=== PATIENT | female | born 1965 ===

== ENCOUNTER 2017-01-15 12:03 | Emergency (ER) | payer BC, OTHER ==
[2017-01-15 12:03] VITALS: BMI 26.4
[2017-01-15 12:17] VITALS: RESP 18; TEMP 98.2
[2017-01-15] MEDS ORDERED: Sodium Chloride 0.9% 1,000 ML IV ONE (13:00)
--- NOTE | 2017-01-15 13:10 | C.PDOC ---
Time Seen by Provider: 01/15/17 12:24 Chief Complaint (Nursing): Female Genitourinary Past Medical History Vital Signs: Last Vital Signs Temp 98.2 F 01/15/17 12:14 Pulse 78 01/15/17 12:14 Resp 18 01/15/17 12:14 BP 116/77 01/15/17 12:14 Pulse Ox 100 01/15/17 12:14 - Medical History PMH: Hypothyroidism Denies: Chronic Kidney Disease Surgical History: Cholecystectomy - Social History Hx Alcohol Use: No Hx Substance Use: No ED Course And Treatment O2 Sat by Pulse Oximetry: 100 Disposition - Disposition
--- NOTE | 2017-01-15 13:11 | C.PDOC ---
History Of Present Illness 51 y/o female presents to ED with complaints of flank pain with associated hematuria for 2 days. Patient denies fever, chills, nausea, vomiting, dysuria, urinary frequency or any other complaints at this time. Time Seen by Provider: 01/15/17 12:24 Chief Complaint (Nursing): Female Genitourinary History Per: Patient History/Exam Limitations: no limitations Onset/Duration Of Symptoms: Days Current Symptoms Are (Timing): Still Present Past Medical History Reviewed: Historical Data, Nursing Documentation, Vital Signs Vital Signs: Last Vital Signs Temp 98.2 F 01/15/17 16:05 Pulse 72 01/15/17 16:05 Resp 18 01/15/17 16:05 BP 113/74 01/15/17 16:05 Pulse Ox 99 01/15/17 16:05 - Medical History PMH: Hypothyroidism Surgical History: Cholecystectomy Family History: States: No Known Family Hx - Social History Hx Alcohol Use: No Hx Substance Use: No Review Of Systems Constitutional: Negative for: Fever, Chills Gastrointestinal: Positive for: Abdominal Pain. Negative for: Nausea, Vomiting Genitourinary: Positive for: Hematuria. Negative for: Dysuria Musculoskeletal: Negative for: Back Pain Skin: Negative for: Rash Neurological: Negative for: Weakness, Numbness Physical Exam - Physical Exam Appears: Non-toxic, No Acute Distress Skin: Normal Color, Warm, Dry, No Rash Head: Atraumatic, Normacephalic Oral Mucosa: Moist Neck: Normal ROM, Supple Cardiovascular: Rhythm Regular Respiratory: Normal Breath Sounds, No Rales, No Rhonchi, No Wheezing Gastrointestinal/Abdominal: Soft, Tenderness (Mild spurapubic ), No Guarding, No Rebound Neurological/Psych: Oriented x3 ED Course And Treatment - Laboratory Results Result Diagrams: 01/15/17 14:10 01/15/17 14:10 Lab Interpretation: No Acute Changes O2 Sat by Pulse Oximetry: 100 (RA) Pulse Ox Interpretation: Normal - CT Scan/US No standard instances Other Rad Studies (CT/US): Read By Radiologist, Radiology Report Reviewed CT/US Interpretation: FINDINGS: LOWER THORAX: Limited fibrotic changes in the bilateral lung bases. LIVER: Unremarkable. No gross lesion or ductal dilatation. GALLBLADDER AND BILE DUCTS: Prior cholecystectomy again suggested. PANCREAS: Unremarkable. No gross lesion or ductal dilatation. SPLEEN: Unremarkable. ADRENALS: Unremarkable. No mass. KIDNEYS AND URETERS: No obstructive uropathy is identified bilaterally, perinephric reaction, urolithiasis or suspicious parenchymal density overall. VASCULATURE: Unremarkable. No aortic aneurysm. BOWEL: The stomach is mildly distended with retained food. There is a nonobstructive bowel gas pattern appreciated throughout the small and large bowel appear relatively prominent retained fecal material seen throughout the majority colon and constipation is in question. APPENDIX: Not clearly identified. Clinically correlate further. No obvious CT pattern appendicitis appreciable. PERITONEUM: Unremarkable. No free fluid. No free air. LYMPH NODES: Unremarkable. No enlarged lymph nodes. BLADDER: Mural thickening the bladder is in question and cystitis is not excluded. The bladder is not fully distended however. Clinically correlate further. REPRODUCTIVE: Unremarkable. BONES: No acute fracture. OTHER FINDINGS: None. IMPRESSION: 1. No obstructive uropathy, radiodense urolithiasis or perinephric perinephric reaction bilaterally. However, limited distention of the urinary bladder limits the evaluation of the wall which appears mildly thickened. No pericystic reaction. Clinically correlate for potential cystitis nevertheless. 2. Prior cholecystectomy again evident. 3. Moderate constipation again suggested. Lack oral and intravenous contrast agents limits interpretation. Further clinical correlation is advised. 4. Bibasilar fibrotic changes again evident. Progress Note: Treated with IVF NSS and rocephin 1 GM IV. On re-evaluation abdomen soft in no distress Reassessment Condition: Unchanged Medical Decision Making Medical Decision Making: Plan: CT scan w/o Contrast abdomen Disposition Counseled Patient/Family Regarding: Studies Performed, Diagnosis, Need For Followup, Rx Given - Disposition Referrals: Kapil Dos Santos Jr., MD [Staff Provider] - Disposition: HOME/ ROUTINE Disposition Time: 16:00 Condition: STABLE Additional Instructions: follow up with PMD and urology for further evaluation Prescriptions: Cephalexin [Keflex] 500 mg PO Q6 #28 capsule Instructions: Urinary Tract Infection in Women (ED) Forms: [facility] (Maori) Print Language: HONDURAN - POA Present On Arrival: None - Clinical Impression Clinical Impression: Urinary tract infection - 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 - Scribe Statement The provider has reviewed the documentation as recorded by the Jesseiblance Coronado All medical record entries made by the Myron were at my direction and personally dictated by me. I have reviewed the chart and agree that the record accurately reflects my personal performance of the history, physical exam, medical decision making, and the department course for this patient. I have also personally directed, reviewed, and agree with the discharge instructions and disposition.
--- NOTE | 2017-01-15 14:01 | CT ---
PROCEDURE: CT Abdomen and Pelvis without intravenous contrast HISTORY: Pain COMPARISON: None. TECHNIQUE: Helical CT of the abdomen and pelvis was performed without oral or intravenous contrast as per referring physician request. Contrast Dose: None Radiation dose: Total exam DLP = 392.09 mGy-cm. This CT exam was performed using one or more of the following dose reduction techniques: Automated exposure control, adjustment of the mA and/or kV according to patient size, and/or use of iterative reconstruction technique. FINDINGS: LOWER THORAX: Limited fibrotic changes in the bilateral lung bases. LIVER: Unremarkable. No gross lesion or ductal dilatation. GALLBLADDER AND BILE DUCTS: Prior cholecystectomy again suggested. PANCREAS: Unremarkable. No gross lesion or ductal dilatation. SPLEEN: Unremarkable. ADRENALS: Unremarkable. No mass. KIDNEYS AND URETERS: No obstructive uropathy is identified bilaterally, perinephric reaction, urolithiasis or suspicious parenchymal density overall. VASCULATURE: Unremarkable. No aortic aneurysm. BOWEL: The stomach is mildly distended with retained food. There is a nonobstructive bowel gas pattern appreciated throughout the small and large bowel appear relatively prominent retained fecal material seen throughout the majority colon and constipation is in question. APPENDIX: Not clearly identified. Clinically correlate further. No obvious CT pattern appendicitis appreciable. PERITONEUM: Unremarkable. No free fluid. No free air. LYMPH NODES: Unremarkable. No enlarged lymph nodes. BLADDER: Mural thickening the bladder is in question and cystitis is not excluded. The bladder is not fully distended however. Clinically correlate further. REPRODUCTIVE: Unremarkable. BONES: No acute fracture. OTHER FINDINGS: None. IMPRESSION: 1. No obstructive uropathy, radiodense urolithiasis or perinephric perinephric reaction bilaterally. However, limited distention of the urinary bladder limits the evaluation of the wall which appears mildly thickened. No pericystic reaction. Clinically correlate for potential cystitis nevertheless. 2. Prior cholecystectomy again evident. 3. Moderate constipation again suggested. Lack oral and intravenous contrast agents limits interpretation. Further clinical correlation is advised. 4. Bibasilar fibrotic changes again evident.
[2017-01-15] MEDS ORDERED: Sodium Chloride 0.9% 1,000 ML ONE (14:12)
[2017-01-15 14:18] LABS: BASO % 0.2 % (0.0-2.0); EOS # 0.1 K/uL (0.0-0.7); HEMATOCRIT 40.6 % (34.0-47.0); LYMPH % 19.7 % (20.0-40.0); MEAN CELL VOLUME 84.1 fL (81.0-99.0); MEAN CORPUSCULAR HEMOGLOBIN 29.1 pg (27.0-31.0); MEAN CORPUSCULAR HGB CONC 34.6 g/dL (33.0-37.0); MEAN PLATELET VOLUME 9.5 fL (7.2-11.7); MONO # 0.7 K/uL (0.0-0.8); MONO % 6.9 % (0.0-10.0); RED CELL DISTRIBUTION WIDTH 14.1 % (11.5-14.5); WHITE BLOOD COUNT 10.1 K/uL (4.8-10.8)
[2017-01-15 14:30] LABS: CHLORIDE 102 mmol/L (98-107); POTASSIUM 3.6 mmol/L (3.6-5.2); SODIUM 135 mmol/L (132-148)
[2017-01-15 14:32] LABS: GFR AFRICAN-AMERICAN > 60
[2017-01-15 14:33] LABS: ALB/GLOB RATIO 1.2 (1.0-2.1); ALKALINE PHOSPHATASE 90 U/L (38-126); ALT/SGPT 48 U/L (9-52); AST/SGOT 21 U/L (14-36); BILIRUBIN,TOTAL 0.9 mg/dL (0.2-1.3); BLOOD UREA NITROGEN 9 mg/dL (7-17); CALCIUM 8.6 mg/dl (8.6-10.4); CARBON DIOXIDE 23 mmol/L (22-30); GLUCOSE,RANDOM 95 mg/dL (65-105); TOTAL PROTEIN 7.5 g/dL (6.3-8.3)
[2017-01-15 15:07] LABS: RBC URINE 490 /hpf (0-3); URINE BACTERIA RARE (<OCC); URINE BILIRUBIN NEGATIVE (NEGATIVE); URINE BLOOD 3+ (NEGATIVE); URINE GLUCOSE (UA) NORMAL (Normal); URINE KETONE NEGATIVE (NEGATIVE); URINE LEUKOCYTE ESTERASE 3+ Leu/uL (Negative); URINE PROTEIN 2+ mg/dL (NEGATIVE); URINE UROBILINOGEN NORMAL mg/dL (0.2-1.0)
[2017-01-15 15:09] LABS: URINE COLOR LIGHT RED (YELLOW)
[2017-01-15 15:10] LABS: WBC URINE 8 /hpf (0-5)
[2017-01-15] MEDS ORDERED: cefTRIAXone IV 1 gm in Dextros 50 ML IV ONE (15:14)
[2017-01-15 16:06] VITALS: BP 113/74; PULSE 72
[2017-01-15] MEDS ORDERED: cefTRIAXone IV 1 gm in Dextros 50 ML IVPB ONE (17:00)
[2017-01-15 18:14] VITALS: O2SAT 100
== END 2017-01-15 16:47 | disposition home or self-care (01) ==
LOC: C.ER 12:03
DX: N39.0 Urinary tract infection, site not specified (principal)
CPT/HCPCS: 74176; 80053; 81001; 85025; 87086; 87181; 96374; 99284; J0696; J7040